=== PATIENT | female | born 2000 | race Hispanic/Latino ===

== ENCOUNTER 2021-03-28 17:14 | Emergency (ER) | payer BC ==
[~2021-03-28] VITALS: Ht 165.1 cm; Wt 121.6 kg
[2021-03-28] MEDS ORDERED: ONDANSETRON ODT4 MG PO (18:11)
[2021-03-28 23:00] VITALS: BP 132/74
== END 2021-03-28 23:01 | disposition home or self-care (01) ==
LOC: ER 18:10
DX: J06.9 Acute upper respiratory infection, unspecified (principal)
CPT/HCPCS: 99282

== ENCOUNTER 2021-08-20 06:19 | Emergency (ER) | payer BC ==
[~2021-08-20] VITALS: Ht 162.6 cm; Wt 123.4 kg
[~2021-08-20 06:19] MED LIST: ONDANSETRON ODT4 MG PO
[2021-08-20] MEDS ORDERED: CEFDINIR300 MG PO (07:05)
[2021-08-20] MEDS ORDERED: ACETAMINOPHEN-1 EAC4 PO (07:05)
[2021-08-20] MEDS ORDERED: DIPHENHYDRAMINE25 M2 PO (07:05)
[2021-08-20] MEDS ORDERED: HYDROCODONE/APAP 5MG-325MG TAB PO ONE (07:15)
[2021-08-20] MEDS ORDERED: CEFTRIAXONE 1 GM VIAL IM ONE (07:15)
[2021-08-20] MEDS ORDERED: ONDANSETRON HCL 4 MG ORAL DISINTEGRATING TAB PO ONE (07:15)
== END 2021-08-20 07:52 | disposition home or self-care (01) ==
LOC: FSED 07:00
DX: H60.92 Unspecified otitis externa, left ear (principal); F17.200 Nicotine dependence, unspecified, uncomplicated
CPT/HCPCS: 99282; J0696; Q0162